=== PATIENT | female | born 1960 | race Caucasian/White ===

== ENCOUNTER 2017-07-22 21:51 | Emergency (ER) | payer SELFPAY, BC | END 2017-07-23 00:43 | disposition left against medical advice (07) | LOC: FTE 21:51 | DX: Z53.21 Procedure and treatment not carried out due to patient leaving prior to being seen by health care provider (principal) ==

== ENCOUNTER → 2018-07-18 | Outpatient (CLI) | payer BC ==
[~2018-07-18] MED LIST: NITROGLYCERIN AEROSOL (4.9 GM); NITROGLYCERIN AEROSOL (4.9 GM) SL
[2018-07-18] MEDS: SOD CHLORIDE 0.9% 100 ML (13:51)
[2018-07-18] MEDS: IOHEXOL 100 ML (13:51)
== END | disposition home or self-care (01) ==
LOC: C/S 11:54
DX: R94.39 Abnormal result of other cardiovascular function study (principal); R06.02 Shortness of breath
CPT/HCPCS: 75571; 75574